=== PATIENT | male | born 1945 | race Hispanic/Latino ===

== ENCOUNTER → 2018-11-30 | Outpatient (CLI) | payer OTHER | END | disposition home or self-care (01) | LOC: RAH 11:03 | PROVIDERS: ATTEND Family Medicine | DX: Z13.6 Encounter for screening for cardiovascular disorders (principal) | CPT/HCPCS: 75571 ==

== ENCOUNTER → 2020-11-26 | Outpatient (CLI) | payer MEDICARE | END | disposition home or self-care (01) | LOC: RAH 14:03 | PROVIDERS: ATTEND Urology | DX: C61 Malignant neoplasm of prostate (principal); N18.9 Chronic kidney disease, unspecified; N13.30 Unspecified hydronephrosis; N32.89 Other specified disorders of bladder | CPT/HCPCS: 76770 ==

== ENCOUNTER → 2024-03-21 | Outpatient (CLI) | payer MEDICARE ==
--- NOTE | 2024-03-21 12:33 | HMCIMG ---
CT CHEST W/O CONTRAST REASON: ABN LUNG FIELD COMPARISON: None. TECHNIQUE: Multiple sequential axial images of the chest were obtained from the thoracic inlet through the upper pole of the kidneys without intravenous contrast administration. FINDINGS: There is a spiculated 2.2 x 2.9 x 2.5 cm mass in the right upper lobe, appearance consistent with primary pulmonary neoplasm. There are moderate emphysematous changes elsewhere in both lungs, there are no additional pulmonary nodules. There is fullness in the right pulmonary hilum, there may be hilar lymphadenopathy. There is a 3 cm lymph node in the right paratracheal region. There is a smaller lymph node in the precarinal region containing a calcification. There is been a previous median sternotomy. Chest wall structures appear unremarkable. There are stones in an otherwise normal appearing gallbladder. There are no lesions in the visualized portions of the liver, the adrenal glands appear normal. Upper portion of an aortic stent graft is visible in the aorta. IMPRESSION: 2.2 x 2.5 x 2.9 cm spiculated mass right upper lobe typical of primary pulmonary neoplasm. 2. [id number] emphysematous changes elsewhere in both lungs. 3. Mediastinal lymphadenopathy with largest node right peritracheal region [address] was performed with one or more following dose reduction techniques: automated exposure control, adjustment of the mA and kv according to patient's size, or use of a iterative reconstruction technique.
== END | disposition home or self-care (01) ==
LOC: RAH 09:50
PROVIDERS: ATTEND Family Medicine
DX: J43.9 Emphysema, unspecified (principal); R59.1 Generalized enlarged lymph nodes; R91.8 Other nonspecific abnormal finding of lung field
CPT/HCPCS: 71250